=== PATIENT | male | born 1950 | race Asian ===

== ENCOUNTER 2022-02-04 20:43 | Emergency (ER) | payer MEDICARE, SELFPAY ==
[2022-02-04] VITALS (10 sets, daily range): BP systolic 148–170; BP diastolic 69–108; PULSE 53–60; RESP 20; TEMP 36.6; O2SAT 95–100
[2022-02-04 21:16] LABS: Add Manual Diff / Slide Review NO; Basophils Absolute Auto 0 /uL (0-100); Basophils Percent Auto 0.6 % (0-2); Eosinophils Absolute Auto 100 /uL (0-450); Hematocrit 41.4 % (41-53); Hemoglobin 14.1 g/dL (13.5-17.5); Lymphocytes Absolute Auto 2400 /uL (1100-4500); Lymphocytes Percent Auto 31.8 % (25-40); Mean Corpuscular HGB Conc 34.2 % (30-36); Mean Corpuscular Hemoglobin 33.2 PG (26-34); Mean Corpuscular Volume 97.1 fL (80-100); Monocytes Absolute Auto 700 /uL (0-900); Monocytes Percent Auto 8.8 % (3-14); Neutrophils Absolute Auto 4300 /uL (1500-7000); Neutrophils Percent Auto 56.8 % (50-75); Platelet Count 250 X10^3/uL (150-400); Red Blood Cell Count 4.26 X10^6/uL (4.5-5.9); Red Cell Distribution Width 13.1 % (11.6-14.8); White Blood Cell Count 7.5 X10^3/uL (4.5-11.0)
--- NOTE | 2022-02-04 21:16 | ED.GENADULT ---
HPI - General Adult General Chief complaint: Abdominal Pain Stated complaint: Thinks kidney stone Time Seen by Provider: 02/04/22 21:09 Source: patient Mode of arrival: Wheelchair History of Present Illness HPI narrative: 71-year-old gentleman with a history of hypertension, colon cancer with a part I right hemicolectomy, diabetes, reflux, left ventricular hypertrophy current medications include lisinopril and metformin and they just moved to the area about a week ago. Presents with acute onset left-sided lower abdomen/flank pain with diffuse abdominal distention. No fevers, preceding abnormalities. No recent cough nausea vomiting no palpitations. Does note that he does have some chronic constipation despite the right hemicolectomy. He has had kidney stones in the distant past. Related Data Previous Rx's Medication Instructions Recorded oxycodone-acetaminophen 5 mg-325 1 tab PO Q6H PRN pain #14 tabs 02/05/22 mg tablet tamsulosin 0.4 mg capsule (Flomax) 0.4 mg PO DAILY #20 caps 02/05/22 Review of Systems Review of Systems Narrative: Remainder of complete review of systems is otherwise unremarkable except for that included in the HPI. Patient History Medical History (Updated 02/05/22 @ 01:38 by Kasandra Peña MD) Acid reflux Diabetes History of colon cancer Hypertension Left ventricular hypertrophy Social History Smoking Status: Never smoker Smoking Status: Never smoker alcohol intake frequency: a few times a month Substance Use Type: does not use Exam Initial Vital Signs Initial Vital Signs: Vital Signs Temperature 97.9 F 02/04/22 20:50 Pulse Rate 60 02/04/22 20:50 Respiratory Rate 20 02/04/22 20:50 Blood Pressure 157/81 H 02/04/22 20:50 Pulse Oximetry 100 02/04/22 20:50 Oxygen Delivery Method 02/04/22 20:50 General: Healthy appearing, in no acute distress. Able to give a complete and coherent history. Well-nourished well-developed HEENT: Moist mucous membranes, normal sclera with reactive pupils, Neck: No JVD, supple Respiratory: Lungs are clear to auscultation, no wheezing no rales no rhonchi. Full and symmetrical air movement Cardiac: Regular rate and rhythm no murmurs no bruits Abdomen: Soft, moderate distention tender in all quadrants worse in the left lower quadrant without rebound or guarding., no flank pain Skin: Warm and dry, no rashes Neurologic: Grossly neurologically intact with no obvious asymmetries or abnormalities Extremities: No trauma, well perfused Psych: Cooperative, appropriate insight and affect Course Orders Ordered: ED Orders 02/04/22 21:00 EKG-12 Lead Stat 02/04/22 21:07 Complete Blood Count AUTO DIFF Stat Comprehensive Metabolic Panel Stat Lipase Stat 02/04/22 21:23 CT abdomen pelvis w con Stat 02/04/22 21:37 CT abdomen pelvis wo con Stat 02/05/22 00:24 CT abdomen pelvis w con Stat Hydromorphone HCl (Hydromorphone 0.5 Mg Inj) 0.5 mg IV Q15MIN PRN PRN Reason: Pain, Last Admin: 02/04/22 21:31 Dose: 0.5 mg Documented By: NR Discontinued Medications Sodium Chloride (Normal Saline 0.9%) 1,000 mls @ 1,000 mls/hr IV BOLUS ONE Stop: 02/04/22 22:14 Last Infusion: 02/04/22 22:57 Dose: 0 mls/hr Documented By: Admin: 02/04/22 21:31 Dose: 1,000 mls/hr Documented By: NR Ketorolac Tromethamine (Ketorolac 30 Mg/Ml Vial) 15 mg IV NOW ONE Stop: 02/04/22 21:16 Last Admin: 02/04/22 23:06 Dose: Not Given Documented By: NR Ondansetron HCl (Ondansetron 4 Mg/2 Ml Inj) 4 mg IV NOW ONE Stop: 02/04/22 21:23 Last Admin: 02/04/22 21:31 Dose: 4 mg Documented By: NR Vital Signs Vital signs: Vital Signs - 8 hr 02/04/22 20:50 Temperature 97.9 F Pulse Rate 60 Respiratory Rate 20 Blood Pressure 157/81 H Pulse Oximetry 100 Oxygen Delivery Method Room Air Medical Decision Making Lab Data Result diagrams: 02/04/22 21:07 02/04/22 21:07 Labs: Lab Results 02/04/22 02/04/22 Range/Units 21:07 21:07 WBC 7.5 (4.5-11.0) X10^3/uL RBC 4.26 L (4.5-5.9) X10^6/uL Hgb 14.1 (13.5-17.5) g/dL Hct 41.4 (41-53) % MCV 97.1 (80-100) fL MCH 33.2 (26-34) PG MCHC 34.2 (30-36) % RDW 13.1 (11.6-14.8) % Plt Count 250 (150-400) X10^3/uL Neut % (Auto) 56.8 (50-75) % Lymph % (Auto) 31.8 (25-40) % [place] % (Auto) 8.8 (3-14) % Eos % (Auto) 2.0 (2-4) % Baso % (Auto) 0.6 (0-2) % Neut # (Auto) 4300 (7155-5033) /uL Lymph # (Auto) 2400 (1658-6262) /uL [place]ent # (Auto) 700 (0-900) /uL Eos # (Auto) 100 (0-450) /uL Baso # (Auto) 0 (0-100) /uL Sodium 140 (137-145) mmol/L Potassium 4.1 (3.4-5.1) mmol/L Chloride 105 (98-107) mmol/L Carbon Dioxide 24 (22-32) mmol/L BUN 21 H (9-20) mg/dL Creatinine 1.22 (0.66-1.25) mg/dL Estimated GFR > 60 (>60) mL/min BUN/Creatinine Ratio 17.2 (6-22) Glucose 104 (80-110) mg/dL Calcium 9.0 (8.4-10.2) mg/dL Total Bilirubin 0.6 (0.2-1.3) mg/dL AST 32 (17-59) IU/L ALT 19 (<50) IU/L Alkaline Phosphatase 45 (38-126) U/L Total Protein 8.3 H (6.3-8.2) g/dL Albumin 4.7 (3.5-5.0) g/dL Globulin 3.6 (1.7-4.1) g/dL Albumin/Globulin Ratio 1.3 (1.0-2.8) Lipase 120 (23-300) U/L Urine Dip Bedside Urine Glucose Negative Bedside Urine Bilirubin - Negative Bedside Urine Ketone - Negative Urine Specific [place] 1.015 Bedside Urine Occult Blood - Negative Bedside Urine pH 6.0 Bedside Urine Protein - Negative Bedside Urine Urobilinogen - Negative Bedside Urine Nitrite - Negative Bedside Urine Leukocytes - Negative Esterase Point of care testing: Urine Dip Bedside Urine Glucose Negative Bedside Urine Bilirubin - Negative Bedside Urine Ketone - Negative Urine Specific [place] 1.015 Bedside Urine Occult Blood - Negative Bedside Urine pH 6.0 Bedside Urine Protein - Negative Bedside Urine Urobilinogen - Negative Bedside Urine Nitrite - Negative Bedside Urine Leukocytes - Negative Esterase Imaging Data CT scan - abdomen/pelvis: Radiologist's Impression: COMPARISON:? None. ? FINDINGS:? Image quality:? Reduced by the absence of both oral and intravenous contrast.? ? ABDOMEN:? Lung bases:? Lung bases are clear.? Heart size is normal.? ? Solid organs:? Liver is normal in size.? Gallbladder appears normal .? Pancreas is normal in contours.? Spleen is normal in size.? No adrenal nodules.? Kidneys are normal in size, without hydronephrosis, but there is asymmetric nonobstructive nephrolithiasis comprised of scattered collecting system calculi bilaterally, left greater than right, measuring no larger than 3 mm in diameter each.? However, at the lower 3rd renal cortex on the left there appears to be a solid mass potentially measuring up to 4.4 cm in diameter.? Along the expected course of the left ureter distally there is a 3 mm calcification that appears likely to be within the distal left ureter.? This is best seen on CT series 2, image 66.? More inferiorly a left-sided deep pelvic phlebolith is incidentally noted, slightly smaller in size. ? Peritoneum and bowel:? Unenhanced bowel loops demonstrate normal wall thickness and caliber.? No free fluid or air.? ? Nodes and vessels:? No retroperitoneal or mesenteric adenopathy by size criteria.? Note is made of an abnormal finding of low attenuation within the left psoas muscle posteriorly, partially visualized, having a longitudinal length of approximately 11 cm, and in axial dimension of approximately 1.5 x 2.0 cm.? Aorta and inferior vena cava are normal in caliber.? ? Miscellaneous:? No ventral hernias.? ? ? PELVIS:? Genitourinary:? Bladder wall thickness is normal.? ? Miscellaneous:? No inguinal hernias or adenopathy.? ? Bones:? No suspicious bony lesions.? No vertebral body compression fractures.? ? IMPRESSION:? Quality of visualization is significantly limited by the absence of both oral and intravenous contrast.? There are significant findings as follows: ? 1.? Bilateral urinary tract stones with nonobstructive small calculi involving the collecting system of each kidney, left greater than right.? A distal left ureteral stone measuring 3 mm in diameter likely is present by positioning. ? 2.? Suspect 4.4 cm solid mass lower 3rd renal cortex on the left.? Follow-up contrast-enhanced elective CT or MR scanning is recommended. Alternatively, this area could be further assessed by elective follow-up ultrasound initially. ? 3.? Low attenuation within the posterior medial aspect of the left psoas muscle, which appears to potentially represent a prior psoas muscle hematoma.? The absence of adjacent inflammation in the retroperitoneal fat would argue against infection as the underlying cause.? Contrast-enhanced follow-up CT or MR scanning that is anticipated related to the lower left kidney possible mass should accurately assess this area also.? ? Dictated by: Allan Bethea M.D. on 02/04/2022 at 22:01? ?? CT with contrast FINDINGS:? ? Surgical changes and devices:? None.? ? Lungs and pleura:? Lungs are clear.? No pleural effusions or pneumothorax.? ? Mediastinum:? Mediastinal contours appear normal.? Heart size is normal.? ? Bones and chest wall:? No suspicious bony lesions.? Overlying soft tissues appear unremarkable.? ? IMPRESSION:? Normal for age, source of current chest pain symptoms is not seen. ? ? Dictated by: Allan Bethea M.D. on 02/05/2022 at 1:09? ?? [facility] Narrative Medical decision making narrative: 71-year-old gentleman with prior history of kidney stones who presents with acute onset left abdominal pain initial thought was infected kidney stone however on physical exam with diffuse abdominal pain and distention with his history of colon cancer decision was made to order CT scan of the abdomen with contrast. After discussion with family, his is a retired radiologist, we opted to change that to CT scan without contrast. That scan shows a 3 mm stone in the left distal ureter but it also shows a 4 cm mass in the left kidney. Because they have just moved to town, have not yet established care with primary providers will go ahead and do a CT scan without contrast in the emergency department to help with further risk stratification and in getting him to the appropriate providers. In the meantime, will place him on Flomax until the stone passes. The have another dose of Dilaudid at this time the 1st dose was quite effective. And will be discharged home with Flomax and Percocet. Discharge Plan Departure Patient Disposition: Home Clinical Impression: Ureterolithiasis, Left kidney mass Instructions: DI for Kidney Stones Activity Restrictions/Additional Instructions: Thank you for coming in tonight You do have a small (3mm) kidney stone on the left side that is likely the cause of your pain. Please continue Flomax daily until you have passed the stone. Using 400 mg of ibuprofen (2 [id number] pills) and 1 Tylenol every 6 hours can be very helpful in controlling pain. For severe pain you can use 1 Percocet and to ibuprofen. Incidentally noted on the CT scan is a mass of your left kidney that is very concerning for a cancer. It does not appear to have spread and there are no other concerning findings in the remainder of your abdomen. This will need urgent urologic follow-up. Please contact [facility] at [phone] on Sunday to schedule an appointment. I wish you the best Prescriptions: New tamsulosin [Flomax] 0.4 mg capsule 0.4 mg PO DAILY Qty: 20 0RF Rx Instructions: discontinue when you have passed the kidney stone oxycodone-acetaminophen 5-325 mg tablet 1 tab PO Q6H PRN (Reason: pain) Qty: 14 0RF Referrals: Anahi Thomas MD [Physician] - Miscellaneous,MD Otf [Primary Care Provider] -
[2022-02-04 21:26] LABS: Alanine Aminotransferase 19 IU/L (<50); Albumin 4.7 g/dL (3.5-5.0); Albumin Globulin Ratio 1.3 (1.0-2.8); Alkaline Phosphatase 45 U/L (38-126); Aspartate Aminotransferase 32 IU/L (17-59); BUN Creatinine Ratio 17.2 (6-22); Bilirubin Total 0.6 mg/dL (0.2-1.3); Blood Urea Nitrogen 21 mg/dL (9-20); Carbon Dioxide 24 mmol/L (22-32); Chloride 105 mmol/L (98-107); Estimated Glomerular Filt Rate > 60 mL/min (>60); Globulin 3.6 g/dL (1.7-4.1); Glucose 104 mg/dL (80-110); HEMOLYSIS < 15 (0-50); Lipase 120 U/L (23-300); Potassium 4.1 mmol/L (3.4-5.1); Sodium 140 mmol/L (137-145); Total Protein 8.3 g/dL (6.3-8.2)
[2022-02-04] MEDS: SODIUM CHLORIDE 0.9% 1,000 ML 1000 ML IV (21:31)
[2022-02-04] MEDS: ONDANSETRON 4 MG/2 ML INJ IV (21:31)
[2022-02-04] MEDS: HYDROMORPHONE 0.5 MG INJ IV (21:31)
--- NOTE | 2022-02-04 21:37 | DI.CT.S_ITS ---
PROCEDURE: CT ABDOMEN PELVIS WO CON INDICATIONS: acute onset abdominal pain TECHNIQUE: Noncontrast 5 mm thick sections acquired from the diaphragms to the symphysis. 5 mm coronal and sagittal reformats were then performed. For radiation dose reduction, the following was used: automated exposure control, adjustment of mA and/or kV according to patient size. COMPARISON: None. FINDINGS: Image quality: Reduced by the absence of both oral and intravenous contrast. ABDOMEN: Lung bases: Lung bases are clear. Heart size is normal. Solid organs: Liver is normal in size. Gallbladder appears normal . Pancreas is normal in contours. Spleen is normal in size. No adrenal nodules. Kidneys are normal in size, without hydronephrosis, but there is asymmetric nonobstructive nephrolithiasis comprised of scattered collecting system calculi bilaterally, left greater than right, measuring no larger than 3 mm in diameter each. However, at the lower 3rd renal cortex on the left there appears to be a solid mass potentially measuring up to 4.4 cm in diameter. Along the expected course of the left ureter distally there is a 3 mm calcification that appears likely to be within the distal left ureter. This is best seen on CT series 2, image 66. More inferiorly a left-sided deep pelvic phlebolith is incidentally noted, slightly smaller in size. Peritoneum and bowel: Unenhanced bowel loops demonstrate normal wall thickness and caliber. No free fluid or air. Nodes and vessels: No retroperitoneal or mesenteric adenopathy by size criteria. Note is made of an abnormal finding of low attenuation within the left psoas muscle posteriorly, partially visualized, having a longitudinal length of approximately 11 cm, and in axial dimension of approximately 1.5 x 2.0 cm. Aorta and inferior vena cava are normal in caliber. Miscellaneous: No ventral hernias. PELVIS: Genitourinary: Bladder wall thickness is normal. Miscellaneous: No inguinal hernias or adenopathy. Bones: No suspicious bony lesions. No vertebral body compression fractures. IMPRESSION: Quality of visualization is significantly limited by the absence of both oral and intravenous contrast. There are significant findings as follows: 1. Bilateral urinary tract stones with nonobstructive small calculi involving the collecting system of each kidney, left greater than right. A distal left ureteral stone measuring 3 mm in diameter likely is present by positioning. 2. Suspect 4.4 cm solid mass lower 3rd renal cortex on the left. Follow-up contrast-enhanced elective CT or MR scanning is recommended. Alternatively, this area could be further assessed by elective follow-up ultrasound initially. 3. Low attenuation within the posterior medial aspect of the left psoas muscle, which appears to potentially represent a prior psoas muscle hematoma. The absence of adjacent inflammation in the retroperitoneal fat would argue against infection as the underlying cause. Contrast-enhanced follow-up CT or MR scanning that is anticipated related to the lower left kidney possible mass should accurately assess this area also. Dictated by: lAlan Bethea M.D. on 02/04/2022 at 22:01 Approved by: Allan Bethea M.D. on 02/04/2022 at 22:11
[2022-02-05] VITALS: BP 151/72; PULSE 52; O2SAT 96
--- NOTE | 2022-02-05 00:24 | DI.CT.S_ITS ---
PROCEDURE: CT ABDOMEN PELVIS W CON INDICATIONS: renal mass TECHNIQUE: After the administration of intravenous contrast, axial sections acquired from the lung bases to the pubic symphysis. Coronal and sagittal reformats were performed. For radiation dose reduction, the following was used: automated exposure control, adjustment of mA and/or kV according to patient size. COMPARISON: [facility], CT, CT ABDOMEN PELVIS WO CON, 02/04/2022, 21:40. FINDINGS: Image quality: Excellent. Lung bases: Unremarkable. Heart: No significant findings. ABDOMEN: Liver: Unremarkable. Gallbladder: Unremarkable. Biliary ducts: Unremarkable. Pancreas: Unremarkable. Spleen: Unremarkable. Adrenal Glands: Unremarkable. Kidneys and Ureters: The lower 3rd renal cortex at the left kidney contains a 4.7 x 5.0 cm heterogeneously enhancing malignant-appearing mass, without evidence of adjacent metastatic disease or vascular invasion. Each kidney contains at least 1 2-3 mm nonobstructive calculus. The previously identified left psoas muscle low-attenuation is again seen, chronic in appearance Stomach and Bowel: Stomach, small bowel loops, and colon are unremarkable. Peritoneum: No abnormal intraperitoneal fluid. No free air. Ventral Wall: No hernias. Abdominal Nodes: No retroperitoneal or mesenteric adenopathy by size criteria. Vessels: Aorta and inferior vena cava are normal in size. PELVIS: Pelvic Organs: Unremarkable. Bladder: Unremarkable. Pelvic Nodes: No enlarged lymph nodes. Miscellaneous: No hernias are seen. Bones: Unremarkable. 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 No metastatic disease is seen. Small 2-3 mm calculi are seen within the collecting system of each kidney, nonobstructive. An area of low attenuation, vertically oriented, within the left psoas muscle is again seen, shows no abnormal peripheral enhancement, and most likely represents sequela of prior psoas muscle hematoma. Dictated by: Allan Bethea M.D. on 02/05/2022 at 1:04 Approved by: Allan Bethea M.D. on 02/05/2022 at 1:08
[2022-02-05 00:30] VITALS: PULSE 53; O2SAT 98
[2022-02-05 00:31] VITALS: BP 178/78; PULSE 53; O2SAT 99
[2022-02-05 01:00] VITALS: PULSE 58; O2SAT 98
[2022-02-05 01:30] VITALS: PULSE 56; O2SAT 98
[2022-02-05 01:56] VITALS: BP 157/74; PULSE 54; O2SAT 98
[2022-02-05] MEDS: OXYCODONE/APAP 5/325 PREPACK 1 BOTTLE MISC (02:03)
== END 2022-02-05 02:05 | disposition home or self-care (01) ==
PROVIDERS: Emergency Provider Emergency Medicine
DX: N20.1 Calculus of ureter (principal); N28.89 Other specified disorders of kidney and ureter
CPT/HCPCS: 36415; 74176; 74177; 80053; 81003; 83690; 85025; 96361; 96374; 96375; 99284; J1170; J2405; Q9967

== ENCOUNTER → 2024-05-05 07:16 | Outpatient (CLI) | payer MEDICARE, SELFPAY ==
[2024-05-05 08:13] LABS: Add Manual Diff / Slide Review NO; Basophils Absolute Auto 0 /uL (0-100); Basophils Percent Auto 0.6 % (0-2); Eosinophils Absolute Auto 100 /uL (0-450); Eosinophils Percent Auto 2.3 % (2-4); Hematocrit 38.8 % (41-53); Hemoglobin 13.3 g/dL (13.5-17.5); Lymphocytes Absolute Auto 1300 /uL (1100-4500); Lymphocytes Percent Auto 28.4 % (25-40); Mean Corpuscular HGB Conc 34.3 % (30-36); Mean Corpuscular Hemoglobin 33.3 PG (26-34); Mean Corpuscular Volume 97.1 fL (80-100); Monocytes Absolute Auto 300 /uL (0-900); Monocytes Percent Auto 7.2 % (3-14); Neutrophils Absolute Auto 2900 /uL (1500-7000); Neutrophils Percent Auto 61.5 % (50-75); Platelet Count 232 X10^3/uL (150-400); Red Cell Distribution Width 12.9 % (11.6-14.8); White Blood Cell Count 4.7 X10^3/uL (4.5-11.0)
[2024-05-05 08:22] LABS: Hemoglobin A1C% w Est Avg Glu 5.7 % (4.0-6.0)
[2024-05-05 08:53] LABS: Free T4, Direct Thyroxine 1.67 ng/dL (0.78-2.19)
[2024-05-05 09:07] LABS: Thyroid Stimulating Hormone 0.702 uIU/mL (0.47-4.68)
[2024-05-05 09:23] LABS: Alanine Aminotransferase 18 IU/L (<50); Albumin 4.2 g/dL (3.5-5.0); Albumin Globulin Ratio 1.5 (1.0-2.8); Alkaline Phosphatase 47 U/L (38-126); Aspartate Aminotransferase 25 IU/L (17-59); BUN Creatinine Ratio 16.9 (6-22); Bilirubin Total 0.7 mg/dL (0.2-1.3); Blood Urea Nitrogen 23 mg/dL (9-20); Calcium 9.7 mg/dL (8.4-10.2); Carbon Dioxide 26 mmol/L (22-32); Chloride 103 mmol/L (98-107); Cholesterol 145 mg/dL (140-199); Estimated Glomerular Filt Rate 55 mL/min (>60); Globulin 2.8 g/dL (1.7-4.1); Glucose 96 mg/dL (80-110); HDL Cholesterol 45 mg/dL (40-60); HEMOLYSIS < 15 (0-50); LDL Cholesterol Calculated 77 mg/dL (<100); Potassium 4.4 mmol/L (3.4-5.1); Sodium 136 mmol/L (137-145); Triglycerides 116 mg/dL (35-150); Uric Acid 4.6 mg/dL (3.5-8.5)
[2024-05-05 17:45] LABS: Hep C Virus Ab w/Reflex Quant NEGATIVE s/c (NEGATIVE)
== END ==
PROVIDERS: PCP Family Medicine; Referring Provider Family Medicine; Visit Provider Family Medicine
DX: E03.9 Hypothyroidism, unspecified (principal); E11.9 Type 2 diabetes mellitus without complications; Z11.59 Encounter for screening for other viral diseases; M10.9 Gout, unspecified; I10 Essential (primary) hypertension; Z13.9 Encounter for screening, unspecified
CPT/HCPCS: 36415; 80053; 80061; 83036; 84439; 84443; 84550; 85025; 86803

== ENCOUNTER 2024-10-22 08:31 | Observation (INO) | payer MEDICARE, SELFPAY ==
[2024-10-22] VITALS (10 sets, daily range): BP systolic 95–172; BP diastolic 55–80; PULSE 55–76; RESP 16–33; TEMP 35.9–36.6; O2SAT 96–100; BMI 26.6; BMI 25.9
--- NOTE | 2024-10-22 08:35 | DI.RAD.S_ITS ---
PROCEDURE: XR CHEST 1V INDICATIONS: chest pain TECHNIQUE: One view of the chest was acquired. COMPARISON: None. FINDINGS: Surgical changes and devices: None. Lungs and pleura: Lungs are clear. No pleural effusions or pneumothorax. Mediastinum: Mediastinal contours appear normal. Heart size is normal. Bones and chest wall: No suspicious bony lesions. Overlying soft tissues appear unremarkable. IMPRESSION: No acute cardiopulmonary pathology. Dictated by: Mateus Champion M.D. on 10/22/2024 at 9:03 Approved by: Mateus Champion M.D. on 10/22/2024 at 9:03
--- NOTE | 2024-10-22 08:39 | EKG_ITS ---
[address] [address] Test Date: 2024-10-22 Pat Name: Мария Weaver Department: Room: Gender: Male Service Tester: CARLI : 1950 Requested By: Order Number: [id number] Reading MD: Sandeep Cho Measurements Intervals [place] Rate: 74 P: 71 OK: 192 QRS: -51 QRSD: 108 T: 28 QT: 396 QTc: 439 Interpretive Statements Normal sinus rhythm Incomplete right bundle branch block Left anterior fascicular block Minimal voltage criteria for LVH, may be normal variant ( R in aVL ) Electronically Signed On 10-22-2024 15:09:41 PST by Sandeep Cho
--- NOTE | 2024-10-22 08:44 | ED_ITS ---
HPI - Chest Pain General Chief Complaint: Chest Pain Stated Complaint: Chest pressure , SOB Time Seen by Provider: 10/22/24 08:41 History of Present Illness HPI narrative: Patient is a 73-year-old male history of umv-[id number] diabetes hypertension hyperlipidemia hypothyroid status post thyroidectomy presenting to day with chest pressure and shortness of breath. He was just in [place] for the last 4 months. He actually was seen there yesterday or couple days ago for the chest pressure fluid from [place] last night and came here for evaluation. He reports that he has chest pressure and shortness of breath with exertion. It is never at rest or wakes him from his sleep. He sometimes thinks it is his acid reflux. It is nonradiating. He has no abdominal pain or other symptoms Related Data Home Medications Medication Instructions Recorded Confirmed acetaminophen 325 mg capsule 325 mg PO ONCE PRN Pain (Scale 05/01/24 10/22/24 Score 1-3) calcium carbonate 400 mg/5 mL oral 200 mg PO DAILY 05/01/24 10/22/24 suspension cyanocobalamin (vitamin B-12) 100 100 mcg PO DAILY 05/01/24 10/22/24 mcg tablet multivitamin with iron 1 tab PO DAILY 05/01/24 10/22/24 Previous Rx's Medication Instructions Recorded allopurinol 300 mg tablet 300 mg PO DAILY #120 tabs 06/25/24 atorvastatin 20 mg tablet 20 mg PO DAILY #120 tabs 06/25/24 colchicine 0.6 mg capsule 0.6 mg PO DAILY #90 caps 06/25/24 levothyroxine 137 mcg capsule 137 mcg PO DAILY #120 caps 06/25/24 lisinopril 10 mg tablet 10 mg PO DAILY #120 tabs 06/25/24 metformin 500 mg tablet 500 mg PO DAILY #120 tabs 06/25/24 tamsulosin 0.4 mg capsule (Flomax) 0.4 mg PO DAILY #120 caps 06/25/24 Allergies Allergy/AdvReac Type Severity Reaction Status Date / Time No Known Drug Allergies Allergy Verified 06/25/24 13:26 Patient History Medical History Thyroid cancer (~2023) 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 Hearing decreased Gout (~2021) Ankle pain (~2021) Kidney stones (~2014) History of kidney disease (~2021) BPH (benign prostatic hyperplasia) (~2017) History of kidney cancer (~2021) Left ventricular hypertrophy Acid reflux Diabetes History of colon cancer (~2003) Hypertension Surgical History Anesthesia History of total thyroidectomy History of nephrectomy, left History of right hemicolectomy (~2003) Family History Father History of heart disease Hypertension Mother Diabetes mellitus Hypertension Mental health problem Social History household members: spouse Smoking Status: Never smoker alcohol intake: never Smoking Status: Never smoker alcohol intake frequency: a few times a month Exam Initial Vital Signs Initial Vital Signs: Vital Signs Temperature 98 F 10/22/24 08:40 Pulse Rate 76 10/22/24 08:40 Respiratory Rate 20 10/22/24 08:40 Blood Pressure 170/80 H 10/22/24 08:40 Pulse Oximetry 100 10/22/24 08:40 Oxygen Delivery Method Room Air 10/22/24 08:40 Course Orders Ordered: ED Orders 10/22/24 08:35 XR chest 1V Stat EKG-12 Lead Stat 10/22/24 08:43 Complete Blood Count AUTO DIFF Stat Comprehensive Metabolic Panel Stat D Dimer Stat Lipase Stat Magnesium Stat NT-proBNP (BNP-Adult 18+) Stat PTT Partial Thromboplastin Tommy Stat Prothrombin Time INR Stat Troponin & CK Cardiac Panel Stat 10/22/24 10:40 Trop I [Troponin I] Stat 10/22/24 10:45 EKG-12 Lead Stat 10/22/24 12:07 CT angio chest PE protocol Stat Acetaminophen (Acetaminophen 325 Mg Tablet) 650 mg PO Q6H PRN PRN Reason: Fever/Mild Pain (1-3) Allopurinol (Allopurinol 100 Mg Tablet) 300 mg PO DAILY CHRISTIANO Atorvastatin Calcium (Atorvastatin 20 Mg Tablet) 20 mg PO DAILY CHRISTIANO Calcium Carbonate (Calcium Carbonate 500 Mg Tab) 250 mg PO DAILY CHRISTIANO Heparin Sodium (Porcine) (Heparin 5,000 Unit/Ml Vial) 5,000 unit SUBCUT BID CHRISTIANO Last Admin: 10/22/24 14:32 Dose: 5,000 unit Documented By: SB Dextrose ([id number]) 100 mls @ 999 mls/hr IV PRN PRN PRN Reason: Hypoglycemia Insulin Human Lispro (Insulin Lispro 100 Unit/Ml 3ml Vial) 0 unit SUBCUT ACHS CHRISTIANO; Protocol Levothyroxine Sodium (Levothyroxine 137 Mcg Tablet) 137 mcg PO 0600 [facility] Lisinopril (Lisinopril 10 Mg Tablet) 10 mg PO DAILY [facility] Naloxone HCl (Naloxone 0.4 Mg/Ml Vial) 0.2 mg IV Q2MIN PRN PRN Reason: Opiate Reversal Ondansetron HCl (Ondansetron 4 Mg/2 Ml Inj) 4 mg IV Q8HR PRN PRN Reason: Nausea And Vomiting Tamsulosin HCl (Tamsulosin 0.4 Mg Capsule) 0.4 mg PO DAILY [facility] Discontinued Medications Aspirin (Aspirin 81 Mg Chew Tab) 324 mg PO NOW ONE Stop: 10/22/24 08:36 Last Admin: 10/22/24 10:35 Dose: Not Given Documented By: Vital Signs Vital signs: Vital Signs - 8 hr 10/22/24 08:40 10/22/24 08:41 10/22/24 08:41 Temperature 98 F Pulse Rate 76 75 Respiratory Rate 20 Blood Pressure 170/80 H 172/80 H Pulse Oximetry 100 97 Oxygen Delivery Method Room Air 10/22/24 08:48 10/22/24 08:48 10/22/24 09:00 Temperature Pulse Rate 69 67 Respiratory Rate 24 21 Blood Pressure 154/74 H Pulse Oximetry 97 96 Oxygen Delivery Method Room Air 10/22/24 09:00 10/22/24 09:30 10/22/24 09:30 Temperature Pulse Rate 60 Respiratory Rate 17 Blood Pressure 142/65 H 154/71 H Pulse Oximetry 97 Oxygen Delivery Method 10/22/24 10:00 10/22/24 10:00 10/22/24 10:30 Temperature Pulse Rate 56 L 55 L Respiratory Rate 18 33 H Blood Pressure 154/72 H Pulse Oximetry 98 98 Oxygen Delivery Method 10/22/24 10:30 Temperature Pulse Rate Respiratory Rate Blood Pressure 160/77 H Pulse Oximetry Oxygen Delivery Method MDM - Chest Pain Lab Data 10/22/24 08:43 10/22/24 08:43 Labs: Lab Results 10/22/24 10/22/24 Range/Units 08:43 10:40 WBC 7.0 (4.5-11.0) X10^3/uL RBC 4.42 L (4.5-5.9) X10^6/uL Hgb 14.5 (13.5-17.5) g/dL Hct 42.8 (41-53) % MCV 96.7 (80-100) fL MCH 32.7 (26-34) PG MCHC 33.8 (30-36) % RDW 13.6 (11.6-14.8) % Plt Count 274 (150-400) X10^3/uL Neut % (Auto) 73.3 (50-75) % Lymph % (Auto) 18.7 L (25-40) % Lipscomb % (Auto) 6.7 (3-14) % Eos % (Auto) 0.9 L (2-4) % Baso % (Auto) 0.4 (0-2) % Neut # (Auto) 5100 (4179-1594) /uL Lymph # (Auto) 1300 (1981-1827) /uL Lipscomb # (Auto) 500 (0-900) /uL Eos # (Auto) 100 (0-450) /uL Baso # (Auto) 0 (0-100) /uL PT 11.2 (9.4-12.5) SECONDS INR 1.0 (0.9-1.3) APTT 41 H (25.1-36.5) SECONDS D-Dimer 259 (<500) ng/ml Sodium 137 (137-145) mmol/L Potassium 3.8 (3.4-5.1) mmol/L Chloride 104 (98-107) mmol/L Carbon Dioxide 21 L (22-32) mmol/L BUN 21 H (9-20) mg/dL Creatinine 1.26 H (0.66-1.25) mg/dL Estimated GFR > 60 (>60) mL/min BUN/Creatinine Ratio 16.7 (6-22) Glucose 187 H (80-110) mg/dL Calcium 9.5 (8.4-10.2) mg/dL Magnesium 1.8 (1.6-2.3) mg/dL Total Bilirubin 0.7 (0.2-1.3) mg/dL AST 36 (17-59) IU/L ALT 31 (<50) IU/L Alkaline Phosphatase 49 (38-126) U/L Total Creatine Kinase 139 (55-170) U/L Troponin I < 0.012 < 0.012 (0.01-0.034) ng/mL NT-Pro-B Natriuret Pep 34 (<125) pg/mL Total Protein 7.6 (6.3-8.2) g/dL Albumin 4.7 (3.5-5.0) g/dL Globulin 2.9 (1.7-4.1) g/dL Albumin/Globulin Ratio 1.6 (1.0-2.8) Lipase 145 (23-300) U/L Imaging Data Chest x-ray: Radiologist's Impression: PROCEDURE: XR CHEST 1V INDICATIONS: chest pain TECHNIQUE: One view of the chest was acquired. COMPARISON: None. FINDINGS: Surgical changes and devices: None. Lungs and pleura: Lungs are clear. No pleural effusions or pneumothorax. Mediastinum: Mediastinal contours appear normal. Heart size is normal. Bones and chest wall: No suspicious bony lesions. Overlying soft tissues appear unremarkable. IMPRESSION: No acute cardiopulmonary pathology. Dictated by: Mateus Champion M.D. on 10/22/2024 at 9:03 CT scan - chest: Radiologist's Impression: PROCEDURE: CT ANGIO CHEST PE PROTOCOL INDICATIONS: chest pain TECHNIQUE: After the administration of intravenous contrast, 2 mm thick sections acquired from the pulmonary apices to the posterior costophrenic angles. 3-dimensional maximum intensity projection (MIP) coronal and sagittal reformats were then acquired through the thorax. For radiation dose reduction, the following was used: automated exposure control, adjustment of mA and/or kV according to patient size. COMPARISON: None. FINDINGS: Image quality: Diagnostic. Pulmonary arteries: Pulmonary arteries are normal in size, and demonstrate no intraluminal filling defects to suggest central pulmonary embolism. Lower Neck: No enlarged lymph nodes. Thyroid: Thyroid appears to be surgically absent. Axillae: No enlarged lymph nodes. Chest Wall: Unremarkable. Bones: Unremarkable. Lungs and Pleura: No pneumothorax or pleural effusions. No consolidation or suspicious nodules. Heart: Heart size is normal. No pericardial effusion. Thoracic Vessels: No aortic aneurysm. Mediastinum and Aster: No enlarged lymph nodes. Esophagus: No wall thickening. No hiatal hernia. Upper Abdomen: Visualized upper abdomen solid organs and bowel loops appear normal. IMPRESSION: No pulmonary embolus. No acute cardiopulmonary process. Remote thyroidectomy. Dictated by: Giles Bowles M.D. on 10/22/2024 at 12:28 ECG Data Attestation: I personally reviewed and interpreted this ECG as follows: Prior ECG tracings: not available for review Interpretation: Sinus rhythm rate 74 [place] interval 192 QRS [address] depression in lead 3, no ST elevation priors to compare EKG 2. Deepening T-wave inversion noted in lead 3 and no elevation MDM Narrative Medical decision making narrative: MDM CC: Chest pain Complicating co-morbidities: Diabetes hypertension hyperlipidemia Medical records reviewed: [ ] Differential considered: Stable angina acute coronary syndrome pulmonary embolus Exam documented above, pertinent findings include: Awake alert 73-year-old male no acute distress breath sounds clear no peripheral edema Lab Test results independently reviewed as above. Pertinent findings: Troponin negative x2 D-dimer 259 CBC no leukocytosis no anemia CMP bicarb 21 BUN 21 creatinine 1.26, previously 1.36 Independently reviewed EKG as above T-wave inversion noted in lead [address] depression no elevation appreciated Imaging studies independently reviewed: No acute cardiopulmonary process Consultations: Dr. Cho accepts to observation request CT angio Treatments: Aspirin Re-evaluations: Patient has no chest pain in the ED Discussion: Patient 73-year-old male presenting today with chest pain. Symptoms sound consistent with stable angina shortness of breath and chest pressure with exertion resolved at rest. He has no known coronary artery disease. He was multiple risk factors including diabetes hypertension hyperlipidemia. He recently flew from [place] [facility] [place]. He was not hypoxic or tachycardic. D-dimer is actually less than 500 I think unlikely to be pulmonary embolism however CT angio confirms this as well. Patient accepted to observation for further cardiac rule out Discharge Plan Departure Patient Disposition: Admitted as Observation Clinical Impression: Chest pain Admit Date/Time: 10/22/24 12:08 Admit Provider: Sandeep Cho
[2024-10-22 08:53] LABS: Add Manual Diff / Slide Review NO; Basophils Absolute Auto 0 /uL (0-100); Basophils Percent Auto 0.4 % (0-2); Eosinophils Absolute Auto 100 /uL (0-450); Eosinophils Percent Auto 0.9 % (2-4); Hematocrit 42.8 % (41-53); Hemoglobin 14.5 g/dL (13.5-17.5); Lymphocytes Absolute Auto 1300 /uL (1100-4500); Lymphocytes Percent Auto 18.7 % (25-40); Mean Corpuscular HGB Conc 33.8 % (30-36); Mean Corpuscular Hemoglobin 32.7 PG (26-34); Mean Corpuscular Volume 96.7 fL (80-100); Monocytes Absolute Auto 500 /uL (0-900); Monocytes Percent Auto 6.7 % (3-14); Neutrophils Absolute Auto 5100 /uL (1500-7000); Neutrophils Percent Auto 73.3 % (50-75); Platelet Count 274 X10^3/uL (150-400); Red Blood Cell Count 4.42 X10^6/uL (4.5-5.9); Red Cell Distribution Width 13.6 % (11.6-14.8)
[2024-10-22 09:04] LABS: Prothrombin Time 11.2 SECONDS (9.4-12.5)
[2024-10-22 09:07] LABS: Alanine Aminotransferase 31 IU/L (<50); Albumin 4.7 g/dL (3.5-5.0); Albumin Globulin Ratio 1.6 (1.0-2.8); Alkaline Phosphatase 49 U/L (38-126); Aspartate Aminotransferase 36 IU/L (17-59); BUN Creatinine Ratio 16.7 (6-22); Bilirubin Total 0.7 mg/dL (0.2-1.3); Blood Urea Nitrogen 21 mg/dL (9-20); Calcium 9.5 mg/dL (8.4-10.2); Carbon Dioxide 21 mmol/L (22-32); Chloride 104 mmol/L (98-107); Creatine Kinase 139 U/L (55-170); Estimated Glomerular Filt Rate > 60 mL/min (>60); Globulin 2.9 g/dL (1.7-4.1); Glucose 187 mg/dL (80-110); HEMOLYSIS < 15 (0-50); Lipase 145 U/L (23-300); Magnesium 1.8 mg/dL (1.6-2.3); PTT Partial Thromboplastin Tim 41 SECONDS (25.1-36.5); Potassium 3.8 mmol/L (3.4-5.1); Sodium 137 mmol/L (137-145); Total Protein 7.6 g/dL (6.3-8.2)
[2024-10-22 09:13] LABS: D Dimer 259 ng/ml (<500)
[2024-10-22 09:18] LABS: NT-proBNP (BNP-Adult 18+) 34 pg/mL (<125); Troponin I < 0.012 ng/mL (0.01-0.034)
--- NOTE | 2024-10-22 10:48 | EKG_ITS ---
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
[2024-10-22 11:20] LABS: Troponin I < 0.012 ng/mL (0.01-0.034)
--- NOTE | 2024-10-22 12:07 | DI.CT.S_ITS ---
PROCEDURE: CT ANGIO CHEST PE PROTOCOL INDICATIONS: chest pain TECHNIQUE: After the administration of intravenous contrast, 2 mm thick sections acquired from the pulmonary apices to the posterior costophrenic angles. 3-dimensional maximum intensity projection (MIP) coronal and sagittal reformats were then acquired through the thorax. For radiation dose reduction, the following was used: automated exposure control, adjustment of mA and/or kV according to patient size. COMPARISON: None. FINDINGS: Image quality: Diagnostic. Pulmonary arteries: Pulmonary arteries are normal in size, and demonstrate no intraluminal filling defects to suggest central pulmonary embolism. Lower Neck: No enlarged lymph nodes. Thyroid: Thyroid appears to be surgically absent. Axillae: No enlarged lymph nodes. Chest Wall: Unremarkable. Bones: Unremarkable. Lungs and Pleura: No pneumothorax or pleural effusions. No consolidation or suspicious nodules. Heart: Heart size is normal. No pericardial effusion. Thoracic Vessels: No aortic aneurysm. Mediastinum and Aster: No enlarged lymph nodes. Esophagus: No wall thickening. No hiatal hernia. Upper Abdomen: Visualized upper abdomen solid organs and bowel loops appear normal. IMPRESSION: No pulmonary embolus. No acute cardiopulmonary process. Remote thyroidectomy. Dictated by: Giles Bowles M.D. on 10/22/2024 at 12:28 Approved by: Giles Bowles M.D. on 10/22/2024 at 12:30
--- NOTE | 2024-10-22 12:46 | P.HP_ITS ---
History of Present Illness History of Present Illness Date Patient Seen: 10/22/24 Time Patient Seen: 12:46 Chief complaint: Chest pressure , SOB Narrative: The patient is a 73-year-old male with history of diabetes, hypertension, and hyperlipidemia. He does not smoke or him a family CAD. He present with a complaint of exertional chest pain for the past week. This is new. He was in [place] for the last 4 months and returned home yesterday. He lives in [facility] with his . He describes exertional chest pressure. Does have a history of reflux as well, but does not take anything for this. This became more active over the last week. He was seen in the hospital in [place] just before flying home. They recommended something for his stomach. ECG was nonacute, troponins normal in the ED. He was many risk factors for heart disease and his history appears to be somewhat exertional. A CT pulmonary angiogram was negative for PE, given his long flight home. 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 Hearing decreased Gout (~2021) Ankle pain (~2021) Kidney stones (~2014) History of kidney disease (~2021) BPH (benign prostatic hyperplasia) (~2017) History of kidney cancer (~2021) Left ventricular hypertrophy Acid reflux Diabetes History of colon cancer (~2003) Hypertension Surgical History Anesthesia History of total thyroidectomy History of nephrectomy, left History of right hemicolectomy (~2003) Family History Father History of heart disease Hypertension Mother Diabetes mellitus Hypertension Mental health problem Social History household members: spouse Smoking Status: Never smoker alcohol intake: never Meds Home Medications and Allergies Home Medications Medication Instructions Recorded Confirmed Type acetaminophen 325 mg capsule 325 mg PO ONCE PRN Pain (Scale 05/01/24 10/22/24 History Score 1-3) calcium carbonate 400 mg/5 mL oral 200 mg PO DAILY 05/01/24 10/22/24 History suspension cyanocobalamin (vitamin B-12) 100 100 mcg PO DAILY 05/01/24 10/22/24 History mcg tablet multivitamin with iron 1 tab PO DAILY 05/01/24 10/22/24 History allopurinol 300 mg tablet 300 mg PO DAILY #120 tabs 06/25/24 10/22/24 Rx atorvastatin 20 mg tablet 20 mg PO DAILY #120 tabs 06/25/24 10/22/24 Rx colchicine 0.6 mg capsule 0.6 mg PO DAILY #90 caps 06/25/24 10/22/24 Rx levothyroxine 137 mcg capsule 137 mcg PO DAILY #120 caps 06/25/24 10/22/24 Rx lisinopril 10 mg tablet 10 mg PO DAILY #120 tabs 06/25/24 10/22/24 Rx metformin 500 mg tablet 500 mg PO DAILY #120 tabs 06/25/24 10/22/24 Rx tamsulosin 0.4 mg capsule (Flomax) 0.4 mg PO DAILY #120 caps 06/25/24 10/22/24 Rx Allergies Allergy/AdvReac Type Severity Reaction Status Date / Time No Known Drug Allergies Allergy Verified 06/25/24 13:26 Review of Systems Review of Systems Narrative: All else reviewed and otherwise unremarkable except as noted in the history and physical. Exam Vital Signs (past 8 hours): - 10/22/24 08:40 10/22/24 08:41 10/22/24 08:41 Temperature 98 F Pulse Rate 76 75 Respiratory Rate 20 Blood Pressure 170/80 H 172/80 H Pulse Oximetry 100 97 Oxygen Delivery Method Room Air 10/22/24 08:48 10/22/24 08:48 10/22/24 09:00 Temperature Pulse Rate 69 67 Respiratory Rate 24 21 Blood Pressure 154/74 H Pulse Oximetry 97 96 Oxygen Delivery Method Room Air 10/22/24 09:00 10/22/24 09:30 10/22/24 09:30 Temperature Pulse Rate 60 Respiratory Rate 17 Blood Pressure 142/65 H 154/71 H Pulse Oximetry 97 Oxygen Delivery Method 10/22/24 10:00 10/22/24 10:00 10/22/24 10:30 Temperature Pulse Rate 56 L 55 L Respiratory Rate 18 33 H Blood Pressure 154/72 H Pulse Oximetry 98 98 Oxygen Delivery Method 10/22/24 10:30 Temperature Pulse Rate Respiratory Rate Blood Pressure 160/77 H Pulse Oximetry Oxygen Delivery Method Oxygen Delivery Method Room Air Narrative Exam Narrative: NAD, alert and oriented, fluent speech, calm. Normocephalic skull, EOMI, anicteric sclera, symmetric pupils. Oropharynx unremarkable, no droop. Neck supple, midline trachea, no adenopathy. Lungs clear, normal rate and effort. Heart regular, no murmur gallop or rub. Abdomen is soft, non distended and non tender. Extremities are free of edema. Skin is free of rash or lesions. Joints are not swollen or deformed. Judgment appears to be normal. Objective ECG Impression: Left axis deviation Incomplete right bundle branch block Left ventricular hypertrophy ( R in aVL , Romhilt-العلي ) Imaging CT scan - chest: Radiologist's impression: o pulmonary embolus. No acute cardiopulmonary process. Remote thyroidectomy. Chest x-ray: Radiologist's impression: No acute cardiopulmonary patho Labs 10/22/24 08:43 10/22/24 08:43 Labs: Laboratory Results - last 24 hr 10/22/24 10/22/24 08:43 10:40 WBC 7.0 RBC 4.42 L Hgb 14.5 Hct 42.8 MCV 96.7 MCH 32.7 MCHC 33.8 RDW 13.6 Plt Count 274 Neut % (Auto) 73.3 Lymph % (Auto) 18.7 L Dukes % (Auto) 6.7 Eos % (Auto) 0.9 L Baso % (Auto) 0.4 Neut # (Auto) 5100 Lymph # (Auto) 1300 Dukes # (Auto) 500 Eos # (Auto) 100 Baso # (Auto) 0 PT 11.2 INR 1.0 APTT 41 H D-Dimer 259 Sodium 137 Potassium 3.8 Chloride 104 Carbon Dioxide 21 L BUN 21 H Creatinine 1.26 H Estimated GFR > 60 BUN/Creatinine Ratio 16.7 Glucose 187 H Calcium 9.5 Magnesium 1.8 Total Bilirubin 0.7 AST 36 ALT 31 Alkaline Phosphatase 49 Total Creatine Kinase 139 Troponin I < 0.012 < 0.012 NT-Pro-B Natriuret Pep 34 Total Protein 7.6 Albumin 4.7 Globulin 2.9 Albumin/Globulin Ratio 1.6 Lipase 145 Assessment & Plan Assessment & Plan narrative: 1. Chest pain, 2. Dm 2, 3. HTN, 4. HLD, 5. Thyroidectomy and Hypothyroidism, PLAN: -rule out with serial troponins. -stress test in the morning of October 23. -slide scale insulin for glucose control. -blood pressure medications he will be continued today. We will monitor blood pressure. Full code Anticipate 1 midnight of care in the hospital, observation status. Time-Based Coding :: 35 min spent with patient and on the chart (including review of chart, obtaining history, exam, reviewing outside data, placing orders, documenting exam and treatment plan, and counseling patient) on 10/22. Quality MIPS - Admit I confirm the patient?s Advance Care Plan is present, Code status is documented, Surrogate decision maker is in patient?s record [If Yes, STOP here]: Yes MIPS - Meds 'Current medications' to include all prescriptions, [id number] products, herbals, cannabis/cannabidiol products, and vitamin/mineral/dietary (nutritional) supplements. I have utilized all available resources to obtain, update, or review the patient?s current medications. [If Yes, STOP here]: Yes
[2024-10-22 13:45] LABS: Troponin I < 0.012 ng/mL (0.01-0.034)
[2024-10-22] MEDS: HEPARIN 5,000 UNIT/ML VIAL 5000 UNIT SUBCUT ×2 (14:32→20:56)
[2024-10-22 21:16] LABS: Troponin I < 0.012 ng/mL (0.01-0.034)
[2024-10-23 04:00] VITALS: BP 126/70; PULSE 64; RESP 16; TEMP 36.3; O2SAT 97
[2024-10-23 05:34] LABS: Add Manual Diff / Slide Review NO; Basophils Absolute Auto 0 /uL (0-100); Basophils Percent Auto 0.4 % (0-2); Eosinophils Absolute Auto 100 /uL (0-450); Eosinophils Percent Auto 1.1 % (2-4); Hematocrit 43.6 % (41-53); Hemoglobin 14.8 g/dL (13.5-17.5); Lymphocytes Absolute Auto 1500 /uL (1100-4500); Lymphocytes Percent Auto 23.5 % (25-40); Monocytes Absolute Auto 500 /uL (0-900); Monocytes Percent Auto 7.6 % (3-14); Neutrophils Absolute Auto 4300 /uL (1500-7000); Neutrophils Percent Auto 67.4 % (50-75); Platelet Count 277 X10^3/uL (150-400); Red Blood Cell Count 4.49 X10^6/uL (4.5-5.9); White Blood Cell Count 6.4 X10^3/uL (4.5-11.0)
[2024-10-23] MEDS: LEVOTHYROXINE 137 MCG TABLET PO (05:45)
[2024-10-23 05:48] LABS: BUN Creatinine Ratio 15.3 (6-22); Blood Urea Nitrogen 18 mg/dL (9-20); Calcium 9.3 mg/dL (8.4-10.2); Carbon Dioxide 22 mmol/L (22-32); Chloride 104 mmol/L (98-107); Estimated Glomerular Filt Rate > 60 mL/min (>60); Glucose 106 mg/dL (80-110); HEMOLYSIS < 15 (0-50); Potassium 4.4 mmol/L (3.4-5.1); Sodium 137 mmol/L (137-145)
[2024-10-23 05:50] LABS: Hemoglobin A1C% w Est Avg Glu 5.6 % (4.0-6.0)
[2024-10-23 08:00] VITALS: BP 125/78; PULSE 68; RESP 22; TEMP 36.2; O2SAT 99
[2024-10-23] MEDS: CALCIUM CARBONATE 500 MG TAB 250 MG PO (08:29)
[2024-10-23] MEDS: TAMSULOSIN 0.4 MG CAPSULE PO (08:30)
[2024-10-23 08:31] VITALS: BP 125/75; PULSE 68
[2024-10-23] MEDS: ATORVASTATIN 20 MG TABLET PO (08:31)
[2024-10-23] MEDS: lisinopriL 10 MG TABLET PO (08:31)
[2024-10-23] MEDS: allopurinoL 100 MG TABLET 300 MG PO (08:32)
[2024-10-23] MEDS: HEPARIN 5,000 UNIT/ML VIAL 5000 UNIT SUBCUT (08:34)
[2024-10-23 12:00] VITALS: BP 106/52; PULSE 66; RESP 16; TEMP 36; O2SAT 99
[2024-10-23] MEDS: SODIUM CHLORIDE 0.9% 500 ML 1000 ML IV (13:30)
--- NOTE | 2024-10-23 13:55 | CM.DANOTE ---
DCP Assessment Note pt is a 73yo M admitted with chest pain. stress test pending. PCP Lyssa Gardner Payer BCBS Medicare Adv and self pay CORRECTIONS SERGEANT reviewed EMR per chart review, pt lives indep with spouse in [place]. Per provider in morning rounds, anticipate dc later this afternoon pending stress test. per RN, indep in room. no anticipated needs. CORRECTIONS SERGEANT met with pt briefly in room with spouse. confirm no DCP/CM needs likely. eager to dc home. CORRECTIONS SERGEANT messaged TCM team. P: anticipate dc home later today with spouse support and OP f/u rec. no identified barriers to safe dc home at this time. CM team will continue to follow as needed ULICES Monahan Discharge Planning/Care Management CM Discharge Assessment Start: 10/23/24 13:54 Freq: Status: Active Protocol: Document 10/23/24 13:54 (Rec: 10/23/24 13:55 [email or web address]) Discharge Planning Assessment Assigned Court Administrator ULICES Augustin DPOA/Assigned Designee Name Shereen spouse Contact Information [phone] Advance Directives? No History Provided By Patient,Medical Record Prior Living Arrangements House Household Members spouse Type of transporation used prior to Drives own vehicle admit Independent with ADL's Yes Is patient alert and oriented? Yes Barriers to Discharge No Discharge Plan Home Referrals Initiated None needed Review Status In Process Please Provide Date Initial DC 10/23/24 Assessment Was Performed Next Review Type Continued Stay Review
[2024-10-23 15:00] VITALS: BP 114/65; BP 116/66; BP 118/57; PULSE 67; PULSE 80; PULSE 82
--- NOTE | 2024-10-23 15:37 | PM.DS.1 ---
History of Present Illness History of Present Illness Date Patient Seen: 10/23/24 Time Patient Seen: 12:46 Chief complaint: Chest pressure , SOB Narrative: Per admitting provider, The patient is a 73-year-old male with history of diabetes, hypertension, and hyperlipidemia. He does not smoke or him a family CAD. He present with a complaint of exertional chest pain for the past week. This is new. He was in [place] for the last 4 months and returned home yesterday. He [facility] with his . He describes exertional chest pressure. Does have a history of reflux as well, but does not take anything for this. This became more active over the last week. He was seen in the hospital in [place] just before flying home. They recommended something for his stomach. ECG was nonacute, troponins normal in the ED. He was many risk factors for heart disease and his history appears to be somewhat exertional. A CT pulmonary angiogram was negative for PE, given his long flight home. Discharge Providers Provider Date of admission: 10/22/24 12:08 Discharge Date: 10/24/24 Primary care physician: Lyssa Gardner MD Discharge provider: Shane Avendaño DO Summary Hospital Course Discharge Diagnosis: 1. Chest pain, resolved 2. Dm 2, POA, stable 3. HTN, POA, stable 4. HLD, poa, stable 5. Thyroidectomy and Hypothyroidism, stable 6. H pylori infection Hospital Course: This is a 73-year-old male with a past medical history of hypertension, hyperlipidemia, and type 2 diabetes who was admitted for further risk stratification in the setting of substernal chest pressure. Initial CT angiogram showed no evidence of PE which was performed as he had just recently returned from [place] the day before. He underwent nuclear stress testing which was deemed low risk. After his stress testing, the patient was mildly hypotensive, improved with a 500 cc bolus. Orthostatics were checked following fluid administration and were negative. He was likely dehydrated after his long flight and NPO status for stress testing. Following stress testing the patient and spouse reported that he had tested positive for H pylori in [place] and was due to follow up with his primary care provider to discuss treatment options. His symptoms may be related to reflux in the setting of H pylori, a stool test was ordered but he was unable to produce one prior to discharge. Given the reliability the patient (spouse is a physician) I opted to treat the patient with quadruple therapy for 2 weeks for treatment of H pylori. Outpatient follow-up and confirmation of eradication is recommended with primary care provider. A1c showed adequate control at 5.6%, and no lipid panel was done prior to discharge, though is recommended with primary care. Time Spent with Patient Time spent: Greater than 30 minutes Exam Vital Signs (past 8 hours): - 10/23/24 08:00 10/23/24 08:31 10/23/24 12:00 Temperature 97.2 F L 96.8 F L Pulse Rate 68 68 66 Respiratory Rate 22 16 Blood Pressure 125/78 125/75 106/52 L Pulse Oximetry 99 99 Oxygen Flow Rate 0 0 Oxygen Delivery Method Room Air Oxygen Flow Rate 0 Narrative Exam Narrative: General:? Patient is well developed and well nourished, in no distress at this time. Chest:? Normal AP diameter and contour without kyphoscoliosis, no tachypnea, equal chest rise bilaterally. Lungs:? CTA b/l no wheezing rhonchi or rales. Cardio:?RRR no m/r/g. Abdomen: S NT ND. No CVA tenderness. Musculoskeletal:? Muscle strength and tone are equal within normal limits, no deformity. Extremities: No edema or joint effusions. No cyanosis or clubbing. Neuro:? Alert and orientated x3,? sensation to touch intact in all extremities, no gross deficits noted of cranial nerves. Psych:? Patient has a well-kept appearance, appropriate affect, mental status attitude thought context and judgment are appropriate for age. Objective Labs 10/23/24 04:58 10/23/24 04:58 Labs: Laboratory Results - last 24 hr 10/22/24 10/23/24 20:42 04:58 WBC 6.4 RBC 4.49 L Hgb 14.8 Hct 43.6 MCV 97.0 MCH 33.0 MCHC 34.0 RDW 14.0 Plt Count 277 Neut % (Auto) 67.4 Lymph % (Auto) 23.5 L Turner % (Auto) 7.6 Eos % (Auto) 1.1 L Baso % (Auto) 0.4 Neut # (Auto) 4300 Lymph # (Auto) 1500 Turner # (Auto) 500 Eos # (Auto) 100 Baso # (Auto) 0 Sodium 137 Potassium 4.4 Chloride 104 Carbon Dioxide 22 BUN 18 Creatinine 1.18 Estimated GFR > 60 BUN/Creatinine Ratio 15.3 Glucose 106 Hemoglobin A1c 5.6 Calcium 9.3 Troponin I < 0.012 PFSH Medical History Thyroid cancer (~2023) 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 Hearing decreased Gout (~2021) Ankle pain (~2021) Kidney stones (~2014) History of kidney disease (~2021) BPH (benign prostatic hyperplasia) (~2017) History of kidney cancer (~2021) Left ventricular hypertrophy Acid reflux Diabetes History of colon cancer (~2003) Hypertension Surgical History Anesthesia History of total thyroidectomy History of nephrectomy, left History of right hemicolectomy (~2003) Family History Father History of heart disease Hypertension Mother Diabetes mellitus Hypertension Mental health problem Social History household members: spouse Smoking Status: Never smoker alcohol intake: never Discharge Plan Discharge Plan Patient Disposition: Home Provider Discharge Comment: You were admitted to the hospital with chest pain, now improved. Stress testing was low risk, okay for discharge home. With Reported + H pylori I have started empiric treatment. Please follow up with primary care as eradication testing is recommended after therapy. Discharge orders & Medications Prescriptions: New omeprazole 20 mg capsule,delayed release(DR/EC) 20 mg PO BID 14 Days Qty: 28 0RF tetracycline 500 mg tablet 500 mg PO Q6H 14 Days Qty: 56 0RF metronidazole 500 mg tablet 500 mg PO Q8H 14 Days Qty: 42 0RF bismuth subsalicylate 262 mg tablet 262 mg PO QID 14 Days Qty: 56 0RF Continued acetaminophen 325 mg capsule 325 mg PO ONCE PRN (Reason: Pain (Scale Score 1-3)) calcium carbonate 400 mg/5 mL suspension 200 mg PO DAILY cyanocobalamin (vitamin B-12) 100 mcg tablet 100 mcg PO DAILY multivitamin with iron Tablet 1 tab PO DAILY colchicine 0.6 mg capsule 0.6 mg PO DAILY Qty: 90 2RF levothyroxine 137 mcg capsule 137 mcg PO DAILY Qty: 120 3RF allopurinol 300 mg tablet 300 mg PO DAILY Qty: 120 3RF atorvastatin 20 mg tablet 20 mg PO DAILY Qty: 120 2RF metformin 500 mg tablet 500 mg PO DAILY Qty: 120 4RF lisinopril 10 mg tablet 10 mg PO DAILY Qty: 120 0RF tamsulosin [Flomax] 0.4 mg capsule 0.4 mg PO DAILY Qty: 120 3RF Rx Instructions: discontinue when you have passed the kidney stone Follow up/Referrals: Lyssa Gardner MD [Primary Care Provider] - Diet/Activity/Treatments Diet: Diet as Tolerated and Regular Activity: As tolerated, no restrictions. Visit Report/Discharge Packet Instructions: DI for Chest Pain Stand Alone Forms: Patient Portal/API, Stroke Signs & Symptoms Discharge Data Primary Care Provider: Lyssa Gardner Attending Provider: Sandeep Cho Admit Date/Time: 10/22/24 12:08 Quality VTE Deep Vein Thrombosis/Pulmonary Embolism Present on Admission: No
--- NOTE | 2024-10-23 15:56 | DI.NM.S_ITS ---
DATE OF SERVICE: 10/23/2024 PROCEDURE: Exercise perfusion study. INDICATIONS: Chest pain with underlying diabetes, hypertension, and hyperlipidemia. RADIOPHARMACEUTICAL: 27.5 mCi technetium-99m Myoview IV was injected at stress and 9.9 mCi technetium-99m Myoview IV was injected at rest. CARDIAC STRESS: The patient underwent exercise perfusion study under the supervision of an attending staff. He walked on Vaibhav protocol for 6 minutes and 9 seconds, achieved maximum heart rate of 153, which was 103% of target heart rate. Resting blood pressure 125/81 and peak blood pressure 170/71 mmHg. LESLY positive 5%. 7 METs of workload. Baseline rhythm is sinus with left axis and possible RVH with prominent R-waves in septal leads. During stress, nonspecific ST-T changes without any convincing ischemic changes. No significant sustained arrhythmias other than rare PVCs. No chest pain. The patient had some shortness of breath. RAW DATA: There is adequate myocardial uptake. GATED STUDY: Resting LV ejection fraction 84% and stress LV ejection fraction 87% without any obvious wall motion abnormalities. Resting end- diastolic volume 68 mL. TID ratio 0.52, which is within normal limits. Lung/heart ratio 0.19, which is within normal limits. MYOCARDIAL PERFUSION SCAN: Stress supine, resting supine, and stress prone images were compared to each other. There is normal myocardial perfusion. Summed stress score and summed rest score is 0. CONCLUSION: This is a normal myocardial perfusion study. Fair exercise tolerance. Normal hemodynamic response. No complex arrhythmias. No chest pain. Preserved LV function. Overall, low-risk myocardial perfusion scan. Мария Weaver - PAUL/yunier/DAMIÁN doc#: [id number]/job#: [id number] dd: 10/23/2024 12:55:00 dt: 10/23/2024 15:42:00 DICTATING MD/COPIES TO: Guilherme Daly MD COPIES MNE: MELQUIADES;
--- NOTE | 2024-10-23 16:12 | PC.NURSE ---
Day shift: After stress test, patient experienced light-headedness and dizziness upon return to his room. BG checked - WNL. BP 89/50. Notified MD Avendaño. 500cc IV bolus given. Patient ate lunch and BP returned to baseline. Patient stated he felt much better. Orthostatic BPs checked - they were negative. Discharge instructions gone over with patient and patient's spouse by EDMOND Randall. PIV and tele removed prior to discharge. All belongings with patient. CELIA Thomas escorted patient to exit via wheelchair.
== END 2024-10-23 16:15 | disposition home or self-care (01) ==
LOC: ED 11:52 → AC 12:09
PROVIDERS: Admitting Provider Hospitalist; Emergency Provider Emergency Medicine; PCP Family Medicine; Referring Provider Emergency Medicine; Visit Provider Hospitalist
DX: R07.9 Chest pain, unspecified (principal); R06.02 Shortness of breath; A04.8 Other specified bacterial intestinal infections; E11.9 Type 2 diabetes mellitus without complications; I10 Essential (primary) hypertension; E78.5 Hyperlipidemia, unspecified; E03.9 Hypothyroidism, unspecified; Z79.4 Long term (current) use of insulin
CPT/HCPCS: 36415; 71045; 71275; 78452; 80048; 80053; 82550; 82962; 83036; 83690; 83735; 83880; 84484; 85025; 85379; 85610; 85730; 93005; 93017; 96360; 96361; 96372; 99283; 99284; G0378; A9502; J1644; Q9967

== ENCOUNTER → 2024-12-03 | Outpatient (CLI) | payer MEDICARE, SELFPAY ==
[2024-10-23 18:08] VITALS: BMI 25.9
--- NOTE | 2024-12-03 09:54 | DI.RAD.S_ITS ---
PROCEDURE: XR FOOT RT MIN 3V INDICATIONS: fell yesterday, pain 5th metatarsal TECHNIQUE: 3 views of the foot were acquired. COMPARISON: None. FINDINGS: Bones: No fractures or dislocations. No suspicious bony lesions. Soft tissues: No tibiotalar joint effusion. Achilles tendon appears normal. IMPRESSION: No visualized acute fracture or dislocation. However, if clinical concern and/or pain persist, short interval imaging followup in 7-10 days is recommended, as occult injury cannot be definitively excluded. Dictated by: Tori Araujo M.D. on 12/23/2024 at 9:15 Approved by: Tori Araujo M.D. on 12/23/2024 at 9:16
== END ==
PROVIDERS: PCP Family Medicine; Referring Provider Physician Assistant; Visit Provider Physician Assistant
DX: S93.601A Unspecified sprain of right foot, initial encounter; W19.XXXA Unspecified fall, initial encounter
CPT/HCPCS: 73630

== ENCOUNTER 2025-06-02 18:17 | Emergency (ER) | payer MEDICARE, SELFPAY ==
[2024-10-23 18:08] VITALS: BMI 25.9
[2025-06-02 18:20] VITALS: BP 178/86; PULSE 61; RESP 18; TEMP 36.9; O2SAT 98; BMI 26.6
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
--- NOTE | 2025-06-02 21:21 | DI.RAD.S_ITS ---
PROCEDURE: XR NASAL BONES MIN 3V INDICATIONS: trauma TECHNIQUE: 3 views of the nasal bones acquired. COMPARISON: None. FINDINGS: Bones: No fractures or dislocations. Nasal septum is midline. Normal nasociliary nerve grooves are noted. Soft tissues: No suspicious soft tissue calcifications. IMPRESSION: No displaced fracture. Dictated by: Kameron Heller M.D. on 06/02/2025 at 21:52 Approved by: Kameron Heller M.D. on 06/02/2025 at 21:53
[2025-06-02 22:21] VITALS: BP 119/69; PULSE 65; RESP 16; O2SAT 97
== END 2025-06-02 22:41 | disposition home or self-care (01) ==
PROVIDERS: Emergency Provider Emergency Medicine; PCP Family Medicine
DX: S02.2XXA Fracture of nasal bones, initial encounter for closed fracture (principal); W22.8XXA Striking against or struck by other objects, initial encounter
CPT/HCPCS: 70160; 99281; 99283

== ENCOUNTER → 2025-06-05 12:15 | Outpatient (CLI) | payer MEDICARE, SELFPAY ==
[2024-10-23 18:08] VITALS: BMI 25.9
--- NOTE | 2025-06-05 12:16 | DI.ECHO.S_ITS ---
[facility] : : [address] : : [place] : : [id number] : : Phone: [phone] Echocardiogram Report + + :Name: CRISPIN MANCILLA Study Date: 06/05/2025 Height: 68 in : [facility] ReadingLocation: Weight: 175 lb : : Gender: Male BSA: 1.9 m2 : :: 1950 Age: 74 yrs BP: 127/69 mmHg: :Reason For Study: CHRONIC STABLE ANGINA : :Ordering Physician: VINH CHAMPION Performed By: Reji Wong : :Referring: VINH CHAMPION : + + Interpretation Summary - The left ventricular contractility is normal. Estimated ejection fraction is greater than 60% with no segmental wall motion abnormalities. Mild concentric LVH. Normal diastolic function. - The right ventricular contractility is normal. There is also mild right ventricle hypertrophy noted. - All cardiac chambers are normal size. - Trace to mild aortic insufficiency. - Trace to mild tricuspid regurgitation with estimated pulmonary systolic artery pressures of 40 mmHg. - Patent foramen ovale noted on agitated saline contrast study. - No obvious intracardiac masses nor thrombi. - No hemodynamically significant pericardial effusion. Conclusion: Normal biventricular function with biventricular hypertrophy. Trace to mild valvular insufficiencies. Patent foramen ovale present. Procedure: A two-dimensional transthoracic echocardiogram with color flow and Doppler was performed. A saline contrast injection was performed to assess for cardiac shunting. The study quality was technically good. There is no prior echocardiogram noted for this patient. The patient was in normal sinus rhythm during the exam. Left Ventricle: The left ventricle is normal in size. Left ventricular wall thickness is mildly increased. There is no ventricular septal defect visualized. The ejection fraction is estimated to be 60-65%. There are no focal wall motion abnormalities. Normal diastolic function. Right Ventricle: The right ventricle is normal in size and function. There is mild right ventricular hypertrophy. Atria: The left atrial size is normal. Right atrial size is normal. The interatrial septum bows toward left atrium consistent with elevated right atrial pressure. R to L interatrial shunt indicated by saline contrast. Mitral Valve: The mitral valve leaflets appear normal. There is no evidence of stenosis, fluttering, or prolapse. There is no mitral regurgitation noted. Aortic Valve: The aortic valve is trileaflet. The aortic valve opens well. There is mild aortic regurgitation. Tricuspid Valve: The tricuspid valve leaflets are thin and pliable. There is mild tricuspid regurgitation. Pulmonic Valve: The pulmonic valve leaflets are thin and pliable; valve motion is normal. There is mild pulmonic regurgitation. Great Vessels: The aortic root is normal size. The dimensions of the ascending aorta are normal. The pulmonary artery is normal size. The inferior vena cava was not visualized. Pericardium/ Pleura There is no pericardial effusion. MMode/2D Measurements & Calculations LVIDd: 3.9 cm LVOT diam: 2.0 cm LVIDs: 2.5 cm Ao root diam: 3.1 cm FS: 36.8 % asc Aorta Diam: 3.6 cm EPSS: 0.66 cm IVSd: 1.1 cm LVPWd: 0.90 cm LV krishnamurthy. diameter/BSA (cm/m^2): 2.0 LV sys. diameter/BSA (cm/m^2): 1.3 LA A2 area: 18.3 cm2 RA long axis: 4.6 cm LA A4 area: 15.8 cm2 RA area: 14.7 cm2 LA length (vol): 5.2 cm RA vol: 39.6 ml LA vol: 46.9 ml RA : 20.5 ml/m2 LA vol index: 24.3 ml/m2 RVD1 (basal): 3.8 cm RVD2 (mid): 3.4 cm TAPSE: 2.2 cm Doppler Measurements & Calculations Ao V2 max: 147.2 cm/sec LVOT Max Evert: 102.0 cm/sec Ao V2 mean: 108.5 cm/sec LV V1 max P.2 mmHg Ao max P.7 mmHg LV V1 VTI: 24.5 cm Ao mean P.1 mmHg DEYANIRA(I,D): 2.3 cm2 Ao V2 VTI: 33.0 cm DEYANIRA(V,D): 2.1 cm2 sev ratio: 0.74 DEYANIRA indexed to BSA (cm^2/m^2): 1.2 MV E max evert: 80.2 cm/sec TR max evert: 286.0 cm/sec MV A max evert: 97.3 cm/sec TR max P.7 mmHg MV E/A: 0.82 PA V2 max: 104.2 cm/sec Med Peak E' Evert: 8.3 cm/sec PA V2 mean: 71.9 cm/sec E/E' med: 9.7 PA mean P.3 mmHg Lat Peak E' Evert: 11.2 cm/sec PA pr(Accel): 53.3 mmHg E/E' lat: 7.1 E/e' average: 8.4 MV dec time: 0.21 sec SV(LVOT): 74.5 ml Reading Physician:FLORESITA
== END ==
LOC: ECHO 12:16
PROVIDERS: PCP Family Medicine; Referring Provider Internal Medicine; Visit Provider Internal Medicine
DX: I08.2 Rheumatic disorders of both aortic and tricuspid valves (principal); I20.89 Other forms of angina pectoris
CPT/HCPCS: 93306